=== PATIENT | male | born 1980 | race Asian ===

== ENCOUNTER 2023-01-22 09:49 | Emergency (ER) | payer MEDICAID ==
[~2023-01-22] VITALS: Ht 172.7 cm; Wt 77.0 kg
[2023-01-22 10:01] VITALS: BP 139/82; PULSE 72; RESP 16; O2SAT 99
[2023-01-22 10:30] VITALS: TEMP 98.5
[2023-01-22] MEDS ORDERED: ACETAMINOPHEN 325MG TABLET PO ONE (10:30)
[2023-01-22] MEDS ORDERED: ACET-2708 MT (10:40)
== END 2023-01-22 11:23 | disposition home or self-care (01) ==
LOC: ER 09:49
DX: S06.9XAA Unspecified intracranial injury with loss of consciousness status unknown, initial encounter (principal); S16.1XXA Strain of muscle, fascia and tendon at neck level, initial encounter; I10 Essential (primary) hypertension; V49.9XXA Car occupant (driver) (passenger) injured in unspecified traffic accident, initial encounter; Y93.89 Activity, other specified; Y92.89 Other specified places as the place of occurrence of the external cause; Y99.8 Other external cause status
CPT/HCPCS: 99282

== ENCOUNTER 2024-09-22 18:56 | Emergency (ER) | payer MEDICAID ==
[~2024-09-22] VITALS: Ht 172.7 cm; Wt 85.0 kg
[~2024-09-22 18:56] MED LIST: ACET-2708 MT
[2024-09-22 19:04] VITALS: O2SAT 100
[2024-09-22 19:21] LABS: BASOPHILS % 0.6 % (0.0-2.0); DIFFERENTIAL COMMENT 1; EOSINOPHILS % 5.2 % (0.0-5.0); HEMATOCRIT. 42.9 % (42.0-52.0); HEMOGLOBIN. 14.3 g/dL (14.0-18.0); LYMPHOCYTES % 38.2 % (20.0-50.0); MEAN CORPUSCULAR HEMOGLOBIN 27.6 pg (28.0-32.0); MEAN CORPUSCULAR HGB CONC 33.3 g/dL (31.0-37.0); MEAN CORPUSCULAR VOLUME 83.1 fL (80.0-94.0); MEAN PLATELET VOLUME 7.4 fl (7.4-10.4); PLATELET 242 x1000/uL (130-400); RED BLOOD CELL COUNT 5.16 mill/uL (4.7-6.1); RED CELL DISTRIBUTION WIDTH 14.7 % (11.6-14.6); WHITE BLOOD COUNT 7.6 x1000/uL (4.5-11.0)
[2024-09-22 19:29] LABS: CALCIUM 9.4 mg/dL (8.7-10.4)
[2024-09-22 19:34] LABS: CREATININE 1.4 mg/dL (0.6-1.3)
[2024-09-22 21:45] VITALS: BP 149/81; PULSE 77; RESP 18; TEMP 36.7; O2SAT 99
== END 2024-09-22 21:45 | disposition home or self-care (01) ==
LOC: ER 18:56
DX: I10 Essential (primary) hypertension (principal); N17.9 Acute kidney failure, unspecified; E78.00 Pure hypercholesterolemia, unspecified; Z79.899 Other long term (current) drug therapy
CPT/HCPCS: 36415; 80048; 85025; 99283